=== PATIENT | female | born 1950 | race Caucasian/White ===

== ENCOUNTER 2016-09-02 06:51 | Day surgery (SDC) | payer MEDICARE ==
[2016-08-27 08:14] LABS: BASOPHILS 0.4 %; BASOPHILS ABSOLUTE 0.02 10/3/uL (0.0-0.16); EOSINOPHILS 1.9 %; HEMATOCRIT 38.1 % (36.0-48.0); HEMOGLOBIN 12.8 g/dL (12.0-16.0); LYMPHOCYTES 29.6 %; LYMPHOCYTES ABSOLUTE 1.53 10/3/uL (0.67-4.30); MEAN CORPUS HGB CONC 33.6 g/dL (32.0-36.0); MEAN CORPUSCULAR HEMOGLOB 29.4 pg (26.0-34.0); MEAN CORPUSCULAR VOLUME 87.6 fL (80-100); MEAN PLATELET VOLUME 8.8 fL (9.2-13.0); MONOCYTES 9.3 %; MONOCYTES ABSOLUTE 0.48 10/3/uL (0.21-1.20); NEUTROPHILS 58.8 %; NEUTROPHILS ABSOLUTE 3.04 10/3/uL (2.02-8.40); PLATELET COUNT 227 10/3/uL (150-400); RBC DISTRIBUTION WIDTH 12.7 % (12.0-16.0); RED CELL COUNT 4.35 10/6/uL (4.0-5.6); WHITE BLOOD CELLS 5.2 10/3/uL (4.5-10.5)
[2016-08-27 08:18] LABS: MANUAL DIFF NO %
[2016-08-27 08:28] LABS: ASCORBIC ACID (UR NOT ORDER) NEG (NEG); BILIRUBIN, URINE NEGATIVE (NEG); KETONE, URINE NEGATIVE (NEG); LEUKOCYTE ESTERASE(NOT OR NEG (NEG); WBC (NOT ORDERED) (RFLEX) < 1 (0-5)
[2016-08-27 08:29] LABS: BUN (BLOOD UREA NITROGEN) 27 MG/DL (6-23); CALCIUM, SERUM 9.2 MG/DL (8.5-10.4); CHLORIDE, SERUM 102 MMOL/L (96-112); CO2 (CARBON DIOXIDE) 30 MMOL/L (24-34); CREATININE 1.35 MG/DL (0.55-1.02); GFR AFRICAN AMERICAN 47 ML/MIN (>=60); GFR NON AFRICAN AMERICAN 41 ML/MIN (>=60); GLUCOSE, SERUM 101 MG/DL (60-99); POTASSIUM, SERUM 4.4 MMOL/L (3.5-5.3); SODIUM, SERUM 138 MMOL/L (135-148)
--- NOTE | ~2016-09-02 | OP ---
Record Of [facility] [address] [place] [id number] NAME: TIERNEY BERGER LUCA : 48 STATUS : [facility]#: [id number] AGE: 66 ADM/REG DATE : 09/02/16 MR#: [id number] REPORT SERV DATE: 09/04/16 DICTATED BY: MIKEL HARVEY DATE: 09/04/16 REPORT STATUS : Draft TRANSCRIBED BY: MODL DATE: 09/04/16 DATE OF PROCEDURE: 09/02/2016 PREOPERATIVE DIAGNOSIS: History of ovarian cancer. POSTOPERATIVE DIAGNOSIS: History of ovarian cancer. PROCEDURE: Removal of tunneled central venous catheter with subcutaneous port. CPT code 96030. SURGEON: Mikel Harvey MD. ANESTHESIA: General. ESTIMATED BLOOD LOSS: Less than 10 mL. CRYSTALLOID: 300 mL. DRAINS: Luc[place]. FINDINGS: No evidence of cancer. PATHOLOGY: None. COMPLICATIONS: None. POSTOPERATIVE PLAN: Extubated to the PACU. PROCEDURE IN DETAIL: After informed consent was signed, the patient was taken the operating room and placed in dorsal supine position, where adequate general anesthesia was administered. The patient was placed in dorsal supine position, and prepped and draped in the usual fashion, and local anesthetic was administered over the prior skin incision in her right upper chest wall, and an incision was made over her prior scar, carried down to the area where the port was. The catheter was secured and removed. Pressure was held for 2 minutes. The sutures adhering the port to the chest wall fascia were incised, and the port and the intact catheter were then removed. Excellent hemostasis was noted. The defect was irrigated and closed in two layers. First layer with 2-0 Vicryl suture with interrupted stitches, and then the skin was closed with 4-0 Monocryl and Dermabond. The patient tolerated the procedure well, was awakened, extubated, and sent to the PACU in stable condition. TB/ALBERTO Mikel Harvey, Record Of [facility] [address] [place] [id number] NAME: KIMBERLYTIERNEY SEWELL LUAC : 48 STATUS : [facility] [place] PAT#: [id number] AGE: 66 ADM/REG DATE : 09/02/16 MR#: [id number] REPORT SERV DATE: 09/04/16 DICTATED BY: MIKEL HARVEY DATE: 09/04/16 REPORT STATUS : Draft TRANSCRIBED BY: ALBERTO DATE: 09/04/16 / [id number] CC: MD SLADE Rothman
[~2016-09-02 06:51] MED LIST: BENICAR HCT1 TA2 PO; COMP10B PO; COZAAR100 MG PO; CYMBALTA60 PO; LOVENOX40 SC; PCET PO; REG; ULTRAM50 PO
== END 2016-09-02 14:41 | disposition home or self-care (01) ==
LOC: SDC 06:51
PROVIDERS: Obstetrics & Gynecology Gynecology
PROC: 0JPT0XZ Removal of Tunneled Vascular Access Device from Trunk Subcutaneous Tissue and Fascia, Open Approach (ICD-10-PCS; principal; 2016-09-02 09:00)
DX: Z45.2 Encounter for adjustment and management of vascular access device (principal); I10 Essential (primary) hypertension; M19.90 Unspecified osteoarthritis, unspecified site; Z98.890 Other specified postprocedural states; Z85.43 Personal history of malignant neoplasm of ovary; Z79.899 Other long term (current) drug therapy; Z90.711 Acquired absence of uterus with remaining cervical stump; Z90.5 Acquired absence of kidney
CPT/HCPCS: 80048; 81001; 85025; 93005; J0694; J2250; J3010